=== PATIENT | female | born 1980 | race Caucasian/White ===

== ENCOUNTER 2017-09-16 15:22 | Emergency (ER) | payer SELFPAY | END 2017-09-16 16:02 | disposition home or self-care (01) | LOC: ERS 15:22 | DX: J06.9 Acute upper respiratory infection, unspecified (principal); I10 Essential (primary) hypertension; Z79.899 Other long term (current) drug therapy | CPT/HCPCS: 99283 ==

== ENCOUNTER 2019-04-20 23:10 | Emergency (ER) | payer SELFPAY ==
[2019-04-21] MEDS ORDERED: Bicillin LA 1.2 MILLION UNITS/2 ML SYRINGE ONE (03:17)
[2019-04-21] MEDS ORDERED: Dexamethasone 10 MG/ML VIAL ONE (03:17)
== END 2019-04-21 01:12 | disposition home or self-care (01) ==
LOC: ERS 23:10
DX: M54.5 Low back pain (principal); R21 Rash and other nonspecific skin eruption; I10 Essential (primary) hypertension; F41.9 Anxiety disorder, unspecified; F32.9 Major depressive disorder, single episode, unspecified; Z79.899 Other long term (current) drug therapy
CPT/HCPCS: 99281; J0561; J1100